=== PATIENT | male | born 1955 | race Caucasian/White ===

== ENCOUNTER → 2016-07-27 | Outpatient (CLI) | payer MEDICARE, MEDICAID ==
--- NOTE | ~2016-07-27 | ECH ---
Transthoracic Echocardiography Report (TTE) Demographics Patient Name FABRIZIO RIVERA Date of Study 07/27/2016 D Patient Number [id number] Visit Number [id number] Date of 1955 Room Number Accession Number [id number] Gender Male Age 61 year(s) Referring Michael Hilliard Wire Walker Melvina Guillen Physician Abdullahi Martinez [facility] Physician Interpreting Wiley Downs Delinquency Counselor Physician Supervising Ordering Physician Abdullahi Martinez MD/MLP Nurse Stress Radiology Supervisor Conclusions Summary Technically adequate exam. The estimated left ventricular ejection fraction is 60%. The left ventricle is mildly dilated . Mild concentric left ventricular hypertrophy. Diastolic assessment reveals Grade I diastolic dysfunction. Procedure Type of Study TTE procedure:Echo Complete SF. Procedure Date Date: 07/27/2016 Start: 01:09 PM Technical Quality: Adequate visualization Indications:Edema. Appropriate Use Criteria: 9 Height: 74 inches Weight: 347 pounds BSA: 2.75 m Rhythm: NSR HR: 86 bpm BP: 135/83 mmHg M-Mode/2D Measurements LV Diastolic Dimension: 5.91 cm LV Systolic Dimension: 3.72 cm LV Septum Diastolic: 1.08 cm LV PW Diastolic: 1.1 cm AO Root Dimension: 3.29 cm Cardiac Output: 5.13 l/min LA Dimension: 5.07 cm Cardiac Index: 1.87 l/min*m RV Diastolic Dimension: 5.07 cm LA volume index: 29 ml/m LVOT: 2.06 cm LVOT VTI: 17.91 cm RV Base: 3.9 cm LV Stroke volume: 59.66 ml RV Mid: 2.6 cm LV Stroke volume index: 21.69 ml/m TAPSE: 3.2 cm TDI-S': 19 cm/s Doppler Measurements AV Peak Velocity: 1.6 m/s MV Peak E-Wave: 0.63 m/s AV Peak Gradient: 10.24 mmHg MV Peak A-Wave: 0.79 m/s AV Mean Gradient: 5.13 mmHg MV E/A Ratio: 0.8 LVOT Peak Velocity: 1.13 m/s MV P1/2t: 73.3 msec AV Area (Continuity):2.37 cm MV Deceleration Time: 368.8 msec MV Area (PHT): 3 cm PV Peak Velocity: 1.49 m/s E' Septal Velocity: 0.06 m/s PV Peak Gradient: 8.85 mmHg E' Lateral Velocity: 0.08 m/s A' Septal Velocity: 0.11 m/s A' Lateral Velocity: 0.12 m/s RA Area: 20.11 cm Findings Left Ventricle The left ventricle is mildly dilated . Mild concentric left ventricular hypertrophy. Diastolic assessment reveals Grade I diastolic dysfunction. Right Ventricle Normal right ventricle structure and function. Left Atrium Normal left atrial size. Right Atrium The right atrium is mildly dilated. Mitral Valve Normal mitral valve structure and function. Trivial mitral regurgitation by color Doppler. Aortic Valve The aortic valve is mildly sclerotic. Tricuspid Valve Normal tricuspid valve structure and function. Trivial tricuspid regurgitation by color Doppler. Insufficient jet to calculate pulmonary pressures. Pulmonic Valve Normal pulmonic valve structure and function. Pericardial Effusion No evidence of pericardial effusion. Miscellaneous Visualized portions of the aortic root and ascending aorta appear normal in size. Pleural Effusion No evidence of pleural effusion. Contractility Score LV regional wall motion:(0-Non visualized 1-Normal 2-Hypokinesis 3-Akinesis 4-Dyskinesis 5-Aneurysm) Signature
== END | disposition home or self-care (01) ==
LOC: CARD 07-24 12:54
DX: R60.0 Localized edema (principal); I51.7 Cardiomegaly

== ENCOUNTER → 2016-09-22 | Outpatient (CLI) | payer MEDICARE, MEDICAID | END | disposition home or self-care (01) | LOC: RESC 09-16 14:08 | DX: R06.00 Dyspnea, unspecified (principal); G47.33 Obstructive sleep apnea (adult) (pediatric) ==